=== PATIENT | male | born 1990 | race Caucasian/White ===

== ENCOUNTER 2024-08-10 13:01 | Emergency (ER) | payer OTHER, SELFPAY ==
[2024-08-10 13:04] VITALS: BP 162/114
[2024-08-10 13:40] LABS: % Basophils 0.4 % (0-2); % Eosinophils 0.3 % (0-6); % Immature Granulocytes 0.1 % (0-0.5); % Lymphocytes 12.8 % (20.5-51.1); % Monocytes 9.4 % (1.7-9.3); Absolute Lymphocytes 1.2 10^3/uL (1.2-3.4); Absolute Monocytes 0.9 10^3/uL (0.1-0.6); Absolute Neutrophils 7.2 10^3/uL (1.4-6.5); Hematocrit 48.1 % (39.0-52.0); Hemoglobin 17.1 g/dL (13.0-18.0); Mean Corp Hgb Conc. 35.6 g/dL (33.0-37.0); Mean Corpuscular Hgb 29.3 pg (27.0-31.0); Mean Corpuscular Volume 82.4 fL (80.0-94.0); Mean Platelet Volume 7.8 fL (7.4-10.4); Nucleated Red Blood Cells % 0 % (-); Platelet Count 343 10^3/uL (130-400); Red Blood Cell Count 5.84 10^6/uL (4.70-6.10); Red Cell Dist. Width 13.1 % (11.5-14.5); White Blood Cell Count 9.4 10^3/uL (4.8-10.8)
[2024-08-10 14:10] LABS: ALT (SGPT) 24 U/L (0-50); AST (SGOT) 26 U/L (17-59); Albumin 5.4 g/dl (3.5-5.0); Alkaline Phosphatase 64 U/L (38-126); Blood Urea Nitrogen 12 mg/dl (9-20); Calcium 10.2 mg/dl (8.4-10.2); Carbon Dioxide 22 mmol/L (22-30); Chloride 98 mmol/L (98-107); Glucose 118 mg/dl (70-99); Potassium 4.7 mmol/L (3.5-5.1); Sodium 135 mmol/L (135-145); Total Bilirubin 2.3 mg/dl (0.2-1.3); Total Protein 8.5 g/dl (6.3-8.2); eGFR > 60.00
--- NOTE | 2024-08-10 16:39 | ED.GENMED ---
History of Present Illness
<ERASMO Duenas - Last Filed: 08/10/24 18:11>
General
Chief Complaint: Blood Pressure Problem
Source: patient and family
Exam Limitations: none
Time Seen by Provider: 08/10/24 14:58
Nursing documentation reviewed up to this point in time: agreed with
History of Present Illness
History of Present Illness:
Patient is a 34-year-old male who was brought to the ER by his mother. Patient arrives with a very odd affect mother answering questions for him. Patient has a history of hypertension and he has been on amlodipine for years. His family doctor
recently started him on lisinopril 20 mg Monday.
After taking that he reports he felt' mentally dull.' Mother reports he felt suicidal but had no plan. He now complains of not being able to sleep for the past 2 to 3 days and has intense muscle cramps in his legs. They went to urgent care today
and while there urgent care noticed a bull's-eye rash to his back. He denies any fever or chills. Yesterday he only took his amlodipine and stopped taking his lisinopril.
He denies prior psychiatric history.
He does not feel suicidal now. His primary complaint is just feeling exhausted because he has not slept in the past 2 days
Review of Systems
<ERASMO Duenas - Last Filed: 08/10/24 18:11>
Review of Systems
Allergies reviewed?: Yes
All Other Systems: ROS reviewed and negative except as documented in HPI and ROS
Constitutional: Reports no symptoms
Respiratory: Reports no symptoms
Cardiac: Reports no symptoms
ABD/GI: Reports no symptoms
: Reports no symptoms
Musculoskeletal: Reports no symptoms
Skin: Reports other (small circular area of redness to right back .)
Psychiatric: Reports depression, anxiety and other (pt does not feel suicidal now )
Phy Exam
<ERASMO Duenas - Last Filed: 08/10/24 18:11>
General Physical Exam
General Presentation: no apparent distress
General age: appears stated age
General Skin: warm and dry
General Habitus: normal
General Mental: alert
General Hydration: appears well hydrated
Cardiovascular Exam
Cardiovascular Exam: regular rate/rhythm, no murmur and normal peripheral pulses
Pulmonary Exam
Pulmonary Exam: lungs clear and no respiratory distress
Course
<ERASMO Duenas - Last Filed: 08/10/24 18:11>
Orders/Labs/Results
Orders:
Orders
08/10/24 13:11
Electrocardiogram (*1) Urgent
Reason for Study: Hypertension, Benign
08/10/24 13:12
EKG- Treatment ONCE
08/10/24 13:25
Complete Blood Count/With Diff Urgent
Comprehensive Metabolic Panel Urgent
Creatine Phosphokinase Urgent
Comment: ADDON
Lyme Progressive Urgent
08/10/24 16:34
Add On- LAB Urgent
Tests Added?: cpk
Abnormal Lab Results
08/10/24
13:25
Absolute Neuts (auto) 7.2 H 10^3/uL
(1.4-6.5)
Absolute Monos (auto) 0.9 H 10^3/uL
(0.1-0.6)
Neutrophils % 77.0 H %
(42.2-75.2)
Lymphocytes % 12.8 L %
(20.5-51.1)
Monocytes % 9.4 H %
(1.7-9.3)
Glucose 118 H mg/dl
(70-99)
Total Bilirubin 2.3 H mg/dl
(0.2-1.3)
Creatine Kinase 292 H U/L
(55-170)
Total Protein 8.5 H g/dl
(6.3-8.2)
Albumin 5.4 H g/dl
(3.5-5.0)
08/10/24 13:25
08/10/24 13:25
Vital Signs
Initial and Last Documented VS:
Initial Vital Signs
Temp Pulse Resp BP Pulse Ox
98.4 F 83 18 162/114 99
08/10/24 13:04 08/10/24 13:04 08/10/24 13:04 08/10/24 13:04 08/10/24 13:04
Last Documented Vital Signs
Temp Pulse Resp BP Pulse Ox
98.4 F 76 20 173/109 91
08/10/24 13:04 08/10/24 17:46 08/10/24 17:46 08/10/24 17:46 08/10/24 17:46
<Rigoberto Escalona MD - Last Filed: 08/10/24 17:32>
Orders/Labs/Results
Orders:
Orders
08/10/24 13:11
Electrocardiogram (*1) Urgent
Reason for Study: Hypertension, Benign
08/10/24 13:12
EKG- Treatment ONCE
08/10/24 13:25
Complete Blood Count/With Diff Urgent
Comprehensive Metabolic Panel Urgent
Creatine Phosphokinase Urgent
Comment: ADDON
Lyme Progressive Urgent
08/10/24 16:34
Add On- LAB Urgent
Tests Added?: cpk
Abnormal Lab Results
08/10/24
13:25
Absolute Neuts (auto) 7.2 H 10^3/uL
(1.4-6.5)
Absolute Monos (auto) 0.9 H 10^3/uL
(0.1-0.6)
Neutrophils % 77.0 H %
(42.2-75.2)
Lymphocytes % 12.8 L %
(20.5-51.1)
Monocytes % 9.4 H %
(1.7-9.3)
Glucose 118 H mg/dl
(70-99)
Total Bilirubin 2.3 H mg/dl
(0.2-1.3)
Creatine Kinase 292 H U/L
(55-170)
Total Protein 8.5 H g/dl
(6.3-8.2)
Albumin 5.4 H g/dl
(3.5-5.0)
08/10/24 13:25
08/10/24 13:25
Vital Signs
Initial and Last Documented VS:
Initial Vital Signs
Temp Pulse Resp BP Pulse Ox
98.4 F 83 18 162/114 99
08/10/24 13:04 08/10/24 13:04 08/10/24 13:04 08/10/24 13:04 08/10/24 13:04
Last Documented Vital Signs
Temp Pulse Resp BP Pulse Ox
98.4 F 76 20 173/109 91
08/10/24 13:04 08/10/24 17:46 08/10/24 17:46 08/10/24 17:46 08/10/24 17:46
<ERASMO Duenas - Last Filed: 08/10/24 18:11>
MDM/Problems Addressed
MDM/Problems Addressed:
As documented patient presented for complaints of feeling depressed and even suicidal after recently being started on lisinopril. Patient took it for 3 days and felt very anxious has not been able to sleep has had muscle spasms and muscle pains.
While at urgent care previously urgent care noticed a questional bull's-eye. Patient presents awake alert very odd affect looking to his mom to answer questions. He is attributing the symptoms and complaints of depression anxiety and nothing of
the sleep to him being started on blood pressure medicine. This is very unlikely. Patient presents with a very odd he even reports he was suicidal after starting this medicine. He has since stopped the medication of no plan and does not feel
suicidal now. He is continued back on his previous amlodipine which she was on for years. His family doctor is aware of this.
He feels that he is not able to sleep and is having muscle spasms in his legs. He is very anxious on arrival. He however is afebrile blood pressure is elevated however no complaints of chest pain blurred vision headache. His labs unremarkable.
Patient was eval by crisis. He denies any questionable psychiatric history however symptoms are consistent with more of a psychiatric issue.
incidentally patient was noted to have a questional bull's-eye rash to his back. This is not necessarily consistent with bull's-eye however Lyme test ordered and will treat for possible Lyme doxycycline prescribed.
Patient was given outpatient resources by crisis.
No acute emergent findings.
He has no acute distress on arrival. Patient was eval by ED physician
<ERASMO Duenas - Last Filed: 08/10/24 18:11>
*EKG
Interpreted by ED Provider?: Yes
Heart Rate: 63
Rate: normal
Rhythm: sinus
Ischemia: non-specific ST changes
*Critical Care Note
Total Time (30-74mins, 75-104mins- exclusive of procedures): Not Applicable
ED Attending Note
<ERASMO Duenas - Last Filed: 08/10/24 18:11>
-
Portions of this chart may have been created with voice recognition software.� Occasional wrong word or��sound alike� substitutions may have occurred due to the inherent limitations of voice recognition software.
<Rigoberto Escalona MD - Last Filed: 08/10/24 17:32>
ED Attending Note
Patient seen and examined by attending physician: Yes
ED Attending Note:
I have seen and evaluated the patient with a [id number] encounter. I have spoken to the advance practicer provider and involved in the medical history, the physical exam, medical decision making.
Evaluation and management service: agree unless noted differently below.
Results interpretation: agree unless noted differently below.
Focused HPI: 34-year-old male presents with his parents for evaluation of multiple complaints�history of complaint is insomnia since he has not been able to sleep for the past few days. He says he has been having muscle spasms palpitations. He
recently was switched from amlodipine to lisinopril on Monday and he says symptoms started shortly thereafter he attributes them to lisinopril. He stopped taking lisinopril on . His doctor prescribed him losartan but he has not yet
started this. He also notes that yesterday he noticed a bull's-eye rash on his back. Unsure of any bug bites.
Physical exam: Hypertensive otherwise normal vitals. Anxious appearing. He does have small bull's-eye rash left mid back. No clear bug bite or pustule, and no excoriation or raised edges.
Medical Decision Makin-year-old male presents for evaluation of insomnia, muscle cramps, palpitations that he attributes to recent switch to lisinopril from amlodipine. He also noticed a bull's-eye rash on his back. Vitals and exam as above.
Bull's-eye rash concerning for Lyme's�will send test but treat empirically. His CBC and CMP here showed no clinically significant abnormalities. CPK marginally elevated. Advise regarding [id number] medications for sleep�melatonin, Benadryl.
Follow-up with primary doctor as an outpatient.
Discharge Plan
Departure
Patient Disposition: Home (Routine Discharge)
Date of Disposition: 08/10/24
Time of Disposition: 18:02
Patient with high blood pressure during this ER visit?: Yes
Condition: Fair
Covid-19: Not Applicable
Discharge Problem:
lyme, elevated blood pressure
Instructions: High Blood Pressure (DC), Lyme Disease (DC), BLOOD PRESSURE
Prescriptions:
New
doxycycline hyclate 100 mg capsule
100 mg PO BID Qty: 21 0RF
Referrals:
Maciel Glez MD [Family Provider] -
Activity Restrictions/Additional Instructions:
As discussed you are given a prescription for doxycycline this was sent to your pharmacy take as directed. Please closely follow-up with family doctor for reevaluation of your symptoms. Your family doctor may also view your results for Lyme test
which is pending at this time. Also as discussed continue to have a conversation about your blood pressure with your family doctor. You are given outpatient resources for anxiety.
Incidentally your bilirubin was mildly elevated please have this rechecked by your family doctor
Interventions
Interventions:
*General Assessment Last Done: 08/10/24 13:04
*Neglect/Abuse Screening Last Done: 08/10/24 13:04
ED- Cardiac Assessment Last Done: 08/10/24 15:30
ED- Neurological Assessment Last Done: 08/10/24 15:30
ED- Pulmonary Assessment Last Done: 08/10/24 15:30
Discharge Date and Time
Print Language: LAO
[2024-08-10 17:11] LABS: Creatine Phosphokinase 292 U/L (55-170)
[2024-08-10 17:46] VITALS: BP 173/109
[2024-08-12 13:52] LABS: Lyme Antibody Screen, EIA Negative (Negative)
== END 2024-08-10 18:22 | disposition home or self-care (01) ==
LOC: EMR 13:01
PROVIDERS: Emergency Medicine; EMERGENCY PHYSICIAN Emergency Medicine; FAMILY PHYSICIAN Family Medicine
DX: A69.20 Lyme disease, unspecified (principal); I10 Essential (primary) hypertension; R25.2 Cramp and spasm; Z79.899 Other long term (current) drug therapy; Z91.148 Patient's other noncompliance with medication regimen for other reason
CPT/HCPCS: 99284; 80053; 82550; 85025; 86618; 93005